=== PATIENT | female | born 1990 | race African-American/Black ===

== ENCOUNTER 2018-01-30 21:03 | Emergency (ER) | payer MEDICAID ==
[~2018-01-30] VITALS: Ht 152.4 cm; Wt 60.7 kg
[2018-01-30 23:53] LABS: CLARITY URINE CLOUDY (CLEAR); COLOR URINE YELLOW (YELLOW); KETONES URINE TRACE (NEGATIVE); LEUKOCYTE ESTERASE URINE 1+ (NEGATIVE); NITRITE URINE NEGATIVE (NEGATIVE); OCCULT BLOOD URINE 3+ (NEGATIVE); PROTEIN URINE 2+ (NEGATIVE); UROBILINOGEN URINE 0.2 E.U./dL (0.2-1.0)
[2018-01-31] MEDS ORDERED: SODIUM CHLORIDE 0.9% 1000ML BAG (SEPSIS BOLUS) IV ONE (02:15)
[2018-01-31 02:36] LABS: HEMOGLOBIN. 14.3 g/dL (12.0-16.0); MEAN CORPUSCULAR HEMOGLOBIN 28.6 pg (28.0-32.0); MEAN CORPUSCULAR VOLUME 86.2 fL (81.0-99.0); MEAN PLATELET VOLUME 8.4 fl (7.4-10.4); PLATELET 196 x1000/uL (130-400); RED BLOOD CELL COUNT 4.99 mill/uL (4.2-5.4); RED CELL DISTRIBUTION WIDTH 13.9 % (11.6-14.6)
[2018-01-31 02:45] LABS: CHLORIDE 103 mEq/L (98-107); INR 1.5; PROTHROMBIN TIME 15.8 sec (9.4-11.6)
[2018-01-31] MEDS ORDERED: CEFTRIAXONE 1 G PREMIX 50 ML IV SCH (02:53)
[2018-01-31 05:37] VITALS: BP 116/75
[2018-01-31 06:42] LABS: PLATELET ESTIMATE NORMAL
== END 2018-01-31 05:38 | disposition home or self-care (01) ==
LOC: ER 21:03 → CANBEDREQ 01-31 08:06
DX: N12 Tubulo-interstitial nephritis, not specified as acute or chronic (principal)
CPT/HCPCS: 36415; 71045; 80053; 81003; 81025; 83605; 85025; 85610; 87040; 87086; 93005; 96365; 99285; J0696; J7030; Z7610

== ENCOUNTER 2018-03-09 12:16 | Emergency (ER) | payer MEDICAID ==
[~2018-03-09] VITALS: Ht 149.9 cm; Wt 62.0 kg
[2018-03-09 13:16] LABS: HEMOGLOBIN. 14.5 g/dL (12.0-16.0); MEAN CORPUSCULAR HEMOGLOBIN 28.7 pg (28.0-32.0); MEAN CORPUSCULAR VOLUME 85.1 fL (81.0-99.0); MEAN PLATELET VOLUME 8.3 fl (7.4-10.4); PLATELET 206 x1000/uL (130-400); RED BLOOD CELL COUNT 5.06 mill/uL (4.2-5.4); RED CELL DISTRIBUTION WIDTH 14.3 % (11.6-14.6)
[2018-03-09 13:22] LABS: CHLORIDE 101 mEq/L (98-107)
[2018-03-09 13:23] LABS: INR 1.1; PROTHROMBIN TIME 11.7 sec (9.4-11.6)
[2018-03-09 13:39] LABS: PLATELET ESTIMATE NORMAL
[2018-03-09 14:00] LABS: CLARITY URINE CLEAR (CLEAR); COLOR URINE YELLOW (YELLOW); KETONES URINE TRACE (NEGATIVE); LEUKOCYTE ESTERASE URINE NEGATIVE (NEGATIVE); NITRITE URINE NEGATIVE (NEGATIVE); OCCULT BLOOD URINE NEGATIVE (NEGATIVE); PROTEIN URINE NEGATIVE (NEGATIVE); SPECIFIC GRAVITY URINE 1.022 (1.005-1.030)
[2018-03-09] MEDS ORDERED: SODIUM CHLORIDE 0.9% 1,000 ML IV ONE (14:00)
[2018-03-09] MEDS ORDERED: ONDANSETRON HCL 4MG/2ML VIAL IV ONE (14:00)
[2018-03-09 14:11] LABS: *AMPHETAMINES SCREEN URINE NEGATIVE (NEGATIVE); *BARBITURATES SCREEN URINE NEGATIVE (NEGATIVE)
[2018-03-09 14:12] LABS: *BENZODIAZEPINES SCREEN URINE NEGATIVE (NEGATIVE); *COCAINE SCREEN URINE NEGATIVE (NEGATIVE); CANNABINOID URINE SCREEN NEGATIVE (NEGATIVE); METHADONE URINE SCREEN NEGATIVE (NEGATIVE); OPIATES URINE SCREEN NEGATIVE (NEGATIVE); PHENCYCLIDINE URINE SCREEN NEGATIVE (NEGATIVE)
[2018-03-09] MEDS ORDERED: ACETAMINOPHEN 650MG/20.3ML UDC PO ONE (14:45)
[2018-03-09 16:40] VITALS: BP 111/66
== END 2018-03-09 17:24 | disposition home or self-care (01) ==
LOC: ER 12:16
DX: T62.91XA Toxic effect of unspecified noxious substance eaten as food, accidental (unintentional), initial encounter (principal); F17.200 Nicotine dependence, unspecified, uncomplicated; Z88.6 Allergy status to analgesic agent; Y92.018 Other place in single-family (private) house as the place of occurrence of the external cause
CPT/HCPCS: 36415; 71045; 80053; 80305; 81003; 81025; 83605; 83690; 85025; 85610; 87040; 87086; 93005; 96361; 96374; 99285; J2405; J7030; Z7610